=== PATIENT | female | born 1975 | race Caucasian/White ===

== ENCOUNTER 2018-03-23 10:02 | Day surgery (SDC) | payer BC ==
--- NOTE | 2018-03-23 05:57 | History and Physical Report ---
DATE: 03/23/2018. CHIEF COMPLAINT AND HISTORY OF CHIEF COMPLAINT: This patient presents with a history of a chronic lumbar radiculopathy. Due to the failure of therapy and the lack of surgical options, the patient had a spinal cord stimulator trial placed on 02/10/2018 with 75 to 85 percent pain control. Due to the failure of all other therapies and the lack of other options, she presents today for implantation of a permanent system. PAST MEDICAL HISTORY: Headaches. PAST SURGICAL HISTORY: Nasal surgery, throat surgery, hiatal hernia repair, fundoplasty. MEDICATIONS ON ADMISSION: To be provided. ALLERGIES: Multiple antibiotics. SOCIAL HISTORY: Caffeine. FAMILY HISTORY: Coronary artery disease, hypertension, cancer. REVIEW OF SYSTEMS: The patient is appropriate and in no acute distress. The remainder of the systems review shows headaches, acid reflux, and bipolar disease. PHYSICAL EXAMINATION: General: Height and weight are unavailable. Vital Signs: Unavailable. HEENT: Within normal limits. Lungs: Clear. Heart: Regular rate and rhythm. Abdomen: Nontender. Musculoskeletal: Examination of the musculoskeletal system shows diffuse tenderness throughout the lumbar spine. Range of motion does produce pain throughout the low back and hip area. There is a lower extremity component bilaterally, right greater than left. Motor and sensory field function is intact. There are no sensory or motor deficits. Ambulation: No assistive device utilized. Neurologic: Cranial nerves are intact. IMPRESSION: INTRACTABLE LUMBAR RADICULOPATHY, ICD-10 CODE M54.16 AND M54.17. PLAN: Due to the success of the stimulator trial and the failure of other therapies, and after appropriate education and instructions, the patient presents today for implantation of a permanent system. The potential risks, side effects, and complications have been carefully reviewed and discussed. Information was reviewed from the supervisor doping including a CD Rom outlining the procedure and its risks, side effects, and complications. Direct contact has been provided with a exhibit display representative to answer questions and fully evaluate and prepare for the procedure. The patient has agreed and consented. The procedure will be considered outpatient, although an overnight stay will be evaluated. JOB NUMBER: [id number] cc: Coco Bee
[~2018-03-23 10:02] MED LIST: ACETAMINOPHEN 1,000 MG/100 ML BTL IV ONE; CEFAZOLIN 2 Gram 2 GM/50 ML BAG IVPB ONE; FAMOTIDINE 20MG TABLET PO ONE; MECLIZINE 25 MG TABLET PO ONE; METOCLOPRAMIDE 10 MG TABLET PO ONE
[2018-03-23] MEDS ORDERED: FLUMAZENIL 1MG/10ML VIAL IV ONE (10:03)
[2018-03-23] MEDS ORDERED: MORPHINE SULFATE 5 MG/ML PFS IVP ONE (10:03)
[2018-03-23] MEDS ORDERED: LIDOCAINE 2% MDV (20MG/ML) 20ML VIAL IV ONE (10:03)
[2018-03-23] MEDS ORDERED: MIDAZOLAM HCL 2MG/2ML VIAL IV ONE (10:03)
[2018-03-23] MEDS ORDERED: PROPOFOL 10 MG/ML VIAL IV ONE (10:03)
[2018-03-23] MEDS ORDERED: FENTANYL PF 100MCG/2ML VIAL IV ONE (10:03)
[2018-03-23] MEDS ORDERED: LIDOCAINE 1% W/EPI 1:200,000 MPF 30ML SQ ONE (10:03)
[2018-03-23] MEDS ORDERED: BUPIVACAINE 0.5% W/EPI MPF 30 ML VIAL IVP ONE (10:03)
[2018-03-23] MEDS ORDERED: SENNOSIDES/DOCUSATE SODIUM UD CAPSULE PO PRN ×2 (13:31)
[2018-03-23] MEDS ORDERED: TEMAZEPAM 15 MG CAPSULE PO PRN ×2 (13:31)
[2018-03-23] MEDS ORDERED: METOCLOPRAMIDE 10 MG TABLET PO PRN (13:31)
[2018-03-23] MEDS ORDERED: OXYCODONE/APAP 10MG-325MG TABLET PO PRN ×2 (13:31)
[2018-03-23] MEDS ORDERED: HYDROMORPHONE HCL 2 MG/ML VIAL IM PRN ×2 (13:31)
[2018-03-23] MEDS ORDERED: HYDROCODONE/APAP 7.5/325MG TABLET PO PRN ×2 (13:31)
[2018-03-23] MEDS ORDERED: DIPHENHYDRAMINE HCL 25 MG CAPSULE PO PRN ×2 (13:31)
[2018-03-23] MEDS ORDERED: AL HYDROX/MAG HYDROX 30ML UD PO PRN (13:31)
[2018-03-23] MEDS ORDERED: ACETAMINOPHEN 325 MG TAB PO PRN ×2 (13:31)
[2018-03-23] MEDS ORDERED: DIPHENHYDRAMINE HCL 50 MG/ML VIAL IVP PRN ×2 (13:31)
[2018-03-23] MEDS ORDERED: METOCLOPRAMIDE HCL 10 MG/2 ML VIAL IVP PRN (13:31)
[2018-03-23] MEDS ORDERED: CEFAZOLIN 2 Gram 2 GM/50 ML BAG IVPB SCH (19:30)
[2018-03-23] MEDS ORDERED: 0.9 % SODIUM CHLORIDE 10ML SYR IVP SCH (22:00)
--- NOTE | 2018-03-25 07:57 | Operative Note ---
DATE OF SURGERY: 03/23/2018. PREOPERATIVE DIAGNOSIS: LUMBAR RADICULOPATHY, ICD-10 CODE M54.16 AND M54.17. POSTOPERATIVE DIAGNOSIS: LUMBAR RADICULOPATHY, ICD-10 CODE M54.16 AND M54.17. OPERATION: 1. Fluoroscopically guided epidural access at left T11-12. Placement of spinal cord stimulator lead 1, a [employer] Infinion 16 with 16 electrodes, positioned left T6. 2. Fluoroscopically guided epidural access at left T12-L1. Placement of spinal cord stimulator lead 2, a [employer] Infinion 16 with 16 electrodes, positioned right T6. 3. Complex programming of lead 1 over 20 minutes followed by complex programming of lead 2 over 20 minutes. 4. Incision, subcutaneous dissection, and anchoring of lead 1 and lead 2 to the supraspinous fascia using a [employer] locking anchor. 5. Incision, subcutaneous dissection, and creation of subcutaneous pouch at left posterior gluteal margin, a site picked by the patient for the generator identified as a [employer] programmable rechargeable WaveWriter generator. 6. Tunneling between pouches. Placement of external portion of lead 1 and lead 2 into generator pouch, each lead interfaced with the generator. 7. Placement of generator pouch, securing to posterior fascia with nonabsorbable suture. Placement of leads into pouch. 8. Closure of both incisions with Vicryl for the fascia and running cuticular nylon closure suture. OpSite dressing placed over the sites once the skin was approximated. SURGEON: Dave Brooks D.O. ANESTHESIA: Local sedation. ANESTHESIA PROVIDER: Elkin Connelly CRNA. INDICATION: This patient presents with a history of intractable lumbar radiculopathy. Due to the failure of all therapies, a spinal cord stimulator trial was conducted with 75 to 90 percent pain control. Due to the failure of all therapy and the success of the trial, the patient presents today for implantation of a permanent system. DESCRIPTION OF PROCEDURE: Intravenous lines, vital sign monitoring, and intravenous sedation. Prepped and draped with sterile technique under imaging with the patient positioned prone. The epidural interspace left of the midline at 11-12 and 12-1 was infiltrated with local. Two separate curved Epimed needles were positioned into the space with loss of resistance. At 11-12 spinal cord stimulator lead 1, a [employer] Infinion 16 with 16 electrodes, was positioned left of midline at T6. Similar access was performed at 12-1. Spinal cord stimulator lead 2, a [employer] Infinion 16 with 16 electrodes, was positioned right of the midline at T6. Complex programming of lead 1 over 20 minutes was followed by complex programming of lead 2 over 20 minutes. This resulted in complete patterns of stimulation across the back and into the legs. The patient indicated we were in all of the areas of the pain. The skin above and below both needles was infiltrated. Incision was made and subcutaneous dissection was conducted to the supraspinous fascia. Each lead was then anchored to the supraspinous fascia with a [employer] locking anchor. At the left posterior gluteal margin, the site picked by the patient for the generator, the skin was infiltrated. An incision was made and subcutaneous dissection was conducted to form a pouch of suitable size and depth for the generator identified as a [employer] programmable rechargeable WaveWriter generator. A tunneling tool was used to carry the leads into the generator pouch, and then each lead was interfaced to the generator. Antibiotic irrigation and Bovie for hemostasis. The generator was placed into the pouch and secured to the posterior fascia with nonabsorbable suture. The leads were placed into their own pouch, and then both incisions were closed with Vicryl for the fascia and a running nylon suture for the skin. An OpSite dressing was placed over both incisions. She was transported to the recovery room stable, showing no side effects from the procedure or the sedation. She was monitored, and when fully awake, alert, and stable she was prepared for discharge. DISCHARGE INSTRUCTIONS: 1. The sites are to remain clean and dry. No showering or bathing in any way that would disrupt the dressings. If this happens, contact the clinic. 2. Standard medications to be resumed including Levaquin the antibiotic 500 mg once a day for 14 days. 3. The office is to contact the patient in the next 24 to 48 hours to set up an appointment in seven to ten days to evaluate the sites and remove the sutures. 5. All other instructions were provided and numbers to contact with problems were given. She was then prepared for discharge. JOB NUMBER: [id number] cc: Coco Bee
--- NOTE | 2018-03-25 10:48 | RADIOLOGY REPORT ---
EXAM: THORACOLUMBAR SPINE HISTORY: PAIN STIMULATOR PLACEMENT. TECHNIQUE: A single portable view of the thoracolumbar spine was performed. FINDINGS: Pain stimulator tips are at the T7 level. IMPRESSION: STIMULATOR TIPS ARE AT THE T7 LEVEL. JOB NUMBER: [id number] MTDD
== END 2018-03-23 16:06 | disposition home or self-care (01) ==
LOC: SUR 10:02 → MEDSURG 13:25 → SUR 16:06
PROVIDERS: ATTEND Pain Medicine Interventional Pain Medicine
DX: M54.16 Radiculopathy, lumbar region (principal); M54.17 Radiculopathy, lumbosacral region; K21.9 Gastro-esophageal reflux disease without esophagitis; F98.8 Other specified behavioral and emotional disorders with onset usually occurring in childhood and adolescence; F31.9 Bipolar disorder, unspecified
CPT/HCPCS: 63685; 63650 ×2; 01936; 95972; 81025; 72020; J3010; J0690; C1820; C1883